=== PATIENT | male | born 1995 | race Caucasian/White ===

== ENCOUNTER 2024-12-25 19:50 | Emergency (ER) | payer OTHER ==
[~2024-12-25] VITALS: Ht 182.9 cm; Wt 80.0 kg
[2024-12-25] MEDS ORDERED: LACTULOSE10 GM/15 M PO (22:28)
[2024-12-25 22:37] VITALS: BP 131/81
== END 2024-12-25 22:38 | disposition home or self-care (01) ==
LOC: ED 19:50
DX: K59.00 Constipation, unspecified (principal)
CPT/HCPCS: 70360; 71045; 74018; 99283-25

== ENCOUNTER 2025-05-20 14:46 | Emergency (ER) | payer OTHER ==
[~2025-05-20] VITALS: Ht 182.9 cm; Wt 90.6 kg
[~2025-05-20 14:46] MED LIST: LACTULOSE10 GM/15 M PO
[2025-05-20 16:02] VITALS: BP 182/91
== END 2025-05-20 16:04 | disposition other institution, planned readmission (95) ==
LOC: ED 14:46
DX: S51.812A Laceration without foreign body of left forearm, initial encounter (principal); S51.811A Laceration without foreign body of right forearm, initial encounter; X78.9XXA Intentional self-harm by unspecified sharp object, initial encounter
CPT/HCPCS: 12004; 99283